=== PATIENT | female | born 1990 | race Caucasian/White ===

== ENCOUNTER 2022-03-26 07:13 | Outpatient (CLI) | payer OTHER | END 2022-03-26 08:03 | disposition home or self-care (01) | LOC: NST 07:13 | PROVIDERS: ATTEND Obstetrics & Gynecology Maternal & Fetal Medicine | DX: Z34.83 Encounter for supervision of other normal pregnancy, third trimester (principal) ==

== ENCOUNTER 2022-04-08 10:17 | Outpatient (CLI) | payer OTHER ==
[2022-04-09] MEDS ORDERED: PRENATAL TABLE1 EAC1 (21:58)
== END 2022-04-08 10:57 | disposition home or self-care (01) ==
LOC: NST 10:17
PROVIDERS: ATTEND Obstetrics & Gynecology
DX: Z34.83 Encounter for supervision of other normal pregnancy, third trimester (principal)

== ENCOUNTER 2022-04-09 21:03 | Inpatient (IN) | payer OTHER ==
[2022-04-09] MEDS ORDERED: PRENATAL TABLE1 EAC1 (21:58)
[2022-04-13] MEDS ORDERED: KETO10TA2 PO (08:02)
[2022-04-13] MEDS ORDERED: TRANDATE300 MG PO (08:02)
[2022-04-13] MEDS ORDERED: OXYC1TAB9 PO (08:02)
== END 2022-04-13 11:18 | disposition home or self-care (01) | DRG 788 ==
LOC: LDR 21:03 → OB/GYN 04-10 16:42
PROVIDERS: ADMIT Obstetrics & Gynecology Maternal & Fetal Medicine; ATTEND Obstetrics & Gynecology Maternal & Fetal Medicine
PROC: 4A1HXCZ Monitoring of Products of Conception, Cardiac Rate, External Approach (ICD-10-PCS; 2022-04-09)
PROC: 10D00Z1 Extraction of Products of Conception, Low, Open Approach (ICD-10-PCS; principal; 2022-04-10 14:30)
DX: O14.04 Mild to moderate pre-eclampsia, complicating childbirth (principal); O62.1 Secondary uterine inertia; Z3A.38 38 weeks gestation of pregnancy; Z37.0 Single live birth; Z20.822 Contact with and (suspected) exposure to COVID-19